=== PATIENT | male | born 1980 | race Caucasian/White ===

== ENCOUNTER 2018-11-02 22:54 | Emergency (ER) | payer OTHER, SELFPAY ==
[2018-11-02 22:56] VITALS: BP 156/102; PULSE 101; RESP 18; TEMP 36.5; O2SAT 96; BMI 37.3
[2018-11-03] MEDS: 0.9% Normal Saline 1,000 ML 125 ML IV (00:01)
[2018-11-03 00:14] LABS: Bacteria 0 SEEN /hpf (None Seen); Red Blood Cells-Urine 0 SEEN /hpf (0-5); Squamous Epithelial Cells - UA 0 SEEN /hpf (0-5); White Blood Cells 0 SEEN /hpf (0-5)
[2018-11-03 00:16] LABS: Color, Urine Yellow (Yellow); Glucose, Dipstick Normal (Normal); Ketone-Dipstick 5 mg/dl (Negative); Leukocyte Esterase-Dipstick Negative /ul (Negative); Nitrite-Dipstick Negative (Negative); Occult Blood-Urine Negative /ul (Negative); Protein-Dipstick 15 mg/dl (Negative); Specific Gravity, Urine 1.015 (1.002-1.030); Urine Bilirubin Dipstick Negative (Negative); Urine Clarity Clear (Clear); Urine Urobilinogen 1 mg/dl (Normal)
[2018-11-03 00:16] LABS: Absolute Lymphocyte Count 2.33 X10^3/uL (0.83-4.51); Absolute Neutrophil Count 12.9 X10^3/uL (2.0-7.7); Basophil# 0.08 X10^3/uL; Basophil% 0.5 % (0-1); Eosinophil# 0.15 X10^3/uL; Eosinophils% 0.9 % (0-5); Hemoglobin 15.6 g/dL (13.0-16.5); Lymphocyte # 2.33 X10^3/ul (4.0); Lymphocyte % 13.9 % (19-41); Mean Corp Hgb Conc 34.7 g/dL (32-36); Mean Corpuscular Hgb 31.5 pg (27.0-32.0); Mean Corpuscular Volume 90.7 fL (80-94); Mean Platelet Vol. 11.7 fl (6.2-12.0); Monocyte# 1.24 X10^3/uL; Monocyte% 7.4 % (0-10); NRBC Flagged by Analyzer 0 % (0-5); Neutrophil # 12.91 X10^3/uL (2.7-7.7); Neutrophil % 76.8 % (47-70); Platelet Count 214 K/mm3 (150-450); RBC Distribution Width CV 11.9 % (11.6-14.6); RBC Distribution Width SD 39.3 fl (35.1-43.9); Red Blood Count 4.96 M/mm3 (4.6-6.2); White Blood Count 16.8 K/mm3 (4.4-11.0)
[2018-11-03 00:29] LABS: Anion Gap 8 (5-15); BUN 9 mg/dL (7-18); BUN/Creat Ratio 9.9 RATIO (10-20); Calcium,Total 9.2 mg/dL (8.5-10.1); Chloride 104 mmol/L (98-107); EST Glomerular Filtration Rate 99 mL/min (>60); Est Glom Filt Rate - Afr Amer 120 mL/min (>60); Estimated Creatinine Clearance 114.91 ml/min; Glucose 110 mg/dL (74-106); Potassium 3.9 mmol/L (3.5-5.1); Sodium Level 138 mmol/L (136-145)
[2018-11-03 00:32] LABS: Amorphous Sediment 1+; Mucous, Urine 3+ /hpf (<or=2+)
--- NOTE | 2018-11-03 00:59 | ED.DCSUM_ITS ---
- ER Visit Summary Date of Service: 11/03/18 Chief Complaint: [Groin and abdomen pain] History of Present Illness: The patient is a 38 M [resents to the emergency department with pain in his lower abdomen and groin that started this morning around 9:30 AM. Patient states pain is mild at this time and rates it a 3 out of 10. He denies any fevers. He denies urinary symptoms. States the pain is worse with certain movements. He has had no nausea or vomiting. Patient denies any trauma to his testicles. Patient does have prior history of diverticulitis. He denies any surgical history on his abdomen although he has had a right foot surgery.] Physical Examination: [HEENT-PERRLA, EOMI. Cranial nerves II through XII grossly intact. TMs clear. Mucous membranes moist. No adenopathy. Cardiovascular-regular rate and rhythm without murmur or ectopy Lungs-clear to auscultation, chest wall stable without crepitus or subcu emphysema Abdomen-normoactive bowel sounds, soft. Patient has mild diffuse tenderness to the lower abdomen. There is no rebound, rigidity, cranial signs. exam-this is a circumcised male. Testicles both have a normal lie and normal cremasteric reflex. No tenderness over the testicles. No tenderness over the epididymis bilaterally. No hernias palpated. Extremities-intact ?4, normal range of motion, normal pulses, atraumatic] Test Results: [CBC with differential obtained showed a white blood cell count of 16.8, hemoglobin 15.6, hematocrit 45, platelets 214. Chemistries unremarkable. Urinalysis was normal. CT scan of the abdomen pelvis was obtained which showed findings suggesting sequela of colitis either infectious or inflammatory the most acute changes are occurring within the right lower quadrant near the cecum.] Emergency Department Course and Treatment: [Patient was started on Cipro and Flagyl p.o. Case was discussed with general surgeon on-call Dr. Van Garcia who will see patient in follow-up.] Treatment Plan: Patient will be treated with Cipro and Flagyl and referred to general surgery for follow-up. [] Disposition: [Discharged home stable condition] Impression: [Abdominal pain Right-sided colitis/diverticulitis] This note was generated with [employer] software. It may contain incorrect words, spelling, and punctuation that were not noted in review of the chart pr ior to signing ED Disposition - Plan for ED Patient: Referrals: Héctor Urban III, MD [Primary Care Provider] -
--- NOTE | 2018-11-03 01:14 | ED.DEP ---
ED Disposition - Plan for ED Patient: Instructions: Diverticulitis Prescriptions: Ciprofloxacin [Cipro] 500 mg PO BID #14 tab Prescription Printed metroNIDAZOLE [Flagyl] 500 mg PO Q8H #21 tab Prescription Printed Hydrocodone Bitart/Apap 5-325 [[place] 5MG-325MG] 1 tab PO Q4H PRN PRN 2 Days #10 tab PRN Reason: Pain Prescription Printed Referrals: Héctor Urban III, MD [Primary Care Provider] - Van Hernandez MD [STAFF PHYSICIAN] - 1-2 Days if not improving
[2018-11-03] MEDS: metroNIDAZOLE 500 MG Tablet PO (01:34)
[2018-11-03] MEDS: Ciprofloxacin 500 MG Tablet PO (01:37)
[2018-11-03 01:38] VITALS: BP 147/95; PULSE 90; RESP 97
--- NOTE | 2018-11-03 23:50 | CT_ITS ---
STUDY: CT ABDOMEN AND PELVIS WITHOUT CONTRAST REASON FOR EXAM: Male, 38 years old. Right-sided abdominal pain and groin pain. RADIATION DOSAGE (If Supplied By Facility): CTDIvol = ( 22.25 ) mGy, DLP = ( 1300.73 ) mGycm TECHNIQUE: Transaxial images were obtained from the dome of the diaphragm to the symphysis pubis without oral contrast, and without intravenous contrast. Sagittal and coronal images were reconstructed. Individualized dose optimization techniques were used for this CT. COMPARISON: CT of the abdomen and pelvis dated May 12, 2015. FINDINGS: The visualized lung bases are unremarkable. The visualized portions of the heart are within normal limits. Normal liver. Normal gallbladder and extrahepatic biliary system. Normal spleen. Normal pancreas. Normal bilateral adrenal glands. Normal right kidney. Normal left kidney. Normal visualized stomach. There is no evidence for dilated bowel, ascites or pneumoperitoneum. There is acute inflammation adjacent to the cecum and right colon probably arising from the ascending colon is abnormally thickened sheikh. This is probably related to colitis. There is also abnormal thickening of the wall of the hepatic flexure. There is abnormal thickening of the sheikh of the splenic flexure the colon as well as the proximal descending colon. The appendix is visualized and appears normal. Normal abdominal aorta. Normal inferior vena cava. Normal retroperitoneum. Urinary bladder is not distended with mild thickening of the sheikh measuring up to 7 mm. Normal visualized prostate gland. Normal abdominal wall. Normal osseous structures. CT/Abdomen/Pelvis without Cont IMPRESSION: CT findings suggest sequela of a colitis either infectious or inflammatory. The most acute changes are occurring within the right lower quadrant near the cecum. Electronically Signed: Gisella Vila MD at 1:01 EDT , Service support ,
== END 2018-11-03 01:39 | disposition home or self-care (01) ==
LOC: ED 11-03 00:01
PROVIDERS: Emergency Provider Emergency Medicine; Family Provider Family Medicine; PCP Family Medicine
DX: K52.9 Noninfective gastroenteritis and colitis, unspecified (principal); K57.92 Diverticulitis of intestine, part unspecified, without perforation or abscess without bleeding; R10.30 Lower abdominal pain, unspecified; Z87.19 Personal history of other diseases of the digestive system
CPT/HCPCS: 74176; 80048; 81001; 85025; 96360; 96361; 99284; J7030; A4216